=== PATIENT | male | born 1960 | race Two or more races ===

== ENCOUNTER 2022-04-23 10:05 | Emergency (ER) | payer BC, OTHER ==
[~2022-04-23] VITALS: Ht 190.5 cm; Wt 83.9 kg
[2022-04-23 10:07] VITALS: BP 167/108
[2022-04-23] MEDS ORDERED: cefTRIAXone SOD 1,000 MG VL IM ONE (11:00)
[2022-04-23] MEDS ORDERED: PROM1SOL4 PO (11:29)
[2022-04-23] MEDS ORDERED: AZIT500T66 PO (11:29)
== END 2022-04-23 11:32 | disposition home or self-care (01) ==
LOC: ER 10:05
DX: J03.90 Acute tonsillitis, unspecified (principal); J20.9 Acute bronchitis, unspecified
CPT/HCPCS: 71046; 96372; 99283; J0696